=== PATIENT | female | born 1980 | race Hispanic/Latino ===

== ENCOUNTER 2020-02-02 14:28 | Outpatient (CLI) | payer OTHER ==
--- NOTE | 2020-02-02 14:47 | RAD ---
Right elbow 4 views HISTORY: Injury. FINDINGS: Radiocapitellar alignment is maintained. No acute fracture or dislocation. No fluid distent ion of the joint capsules. Joint spaces maintained. IMPRESSION : No abnormalities are demonstrated.
== END 2020-02-02 14:29 | disposition home or self-care (01) ==
LOC: MADRAD 14:28
PROVIDERS: ATTEND Family Medicine
DX: M25.521 Pain in right elbow (principal)